=== PATIENT | female | born 1945 | race Caucasian/White ===

== ENCOUNTER 2016-07-02 12:06 | Emergency (ER) | payer OTHER, MEDICARE ==
[2016-07-02 12:28] VITALS: BP 118/74; PULSE 64; RESP 14
--- NOTE | 2016-07-02 12:57 | DX ---
Right Hand, 3 Views, at 12:41 p.m. Clinical History: 71-year-old female with pain and swelling over the 5th metacarpal after a fall this morning. Comparison Study: None. Findings: The bones are demineralized. There is an acute nondisplaced fracture involving the 5th meta carpal head, and an acute mildly displaced and partially comminuted fracture involving the distal uln ar aspect of the 4th metacarpal head-neck junction. 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 On t he lateral view, there some dorsal soft tissue swelling. Impression: Acute fractures of the distal portions of the 4th and 5th metacarpals.
--- NOTE | 2016-07-02 13:01 | UCPHY ---
H & P Patient Type: Established Smoking Status: Never smoked Time Seen by Provider: 07/02/16 12:33 HPI/ROS: CHIEF COMPLAINT: right hand pain HISTORY OF PRESENT ILLNESS: 71-year-old [id number] female complaining of acute right hand pain in the urgent care after she sustained a purely mechanical fall impacting the hand against the ground shortly prior to arrival. Reproducible pain with range of motion and palpation. No other injury. No head injury. PHYSICAL EXAM (Prior to examination, patient consented to physical exam, hands were washed and my usual and customary physical exam procedures followed) 1) GENERAL: Well-developed, well-nourished, alert and oriented. Appears to be in no acute distress. 2) HEAD: Normocephalic 3) HEENT: Pupils equal, round, reactive to light bilaterally. 4) LUNGS: Breathing comfortably. 5) MUSCULOSKELETAL: Tender to palpation 4th and 5th metacarpal with associated soft tissue swelling, ecchymosis. Soft compartments. Normal coloration. Normal cascading of digit 6) SKIN: intact 7) VASCULAR: pulses and cap refill present are brisk 8) NEUROLOGIC: Radial, ulnar, median nerve function intact with no deficits appreciated on exam DIFFERENTIAL DIAGNOSIS: in no particular order including but not limited to fracture, sprain, compartment syndrome Right Hand, 3 Views, at 12:41 p.m. Clinical History: 71-year-old female with pain and swelling over the 5th metacarpal after a fall this morning. Comparison Study: None. Findings: The bones are demineralized. There is an acute nondisplaced fracture involving the 5th metacarpal head, and an acute mildly displaced and partially comminuted fracture involving the distal ulnar aspect of the 4th metacarpal head-neck junction. 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 On the lateral view, there some dorsal soft tissue swelling. Impression: Acute fractures of the distal portions of the 4th and 5th metacarpals. Dictated By: Chapo Baca MD Images reviewed by myself Procedure: Splint An ulnar gutter Ortho Glass splint was applied by ER orthodontic lab technician. After application of the splint I returned and re-examined the patient. The splint was adequately immobilizing the joint and distal to the splint the patient's circulation and sensation were intact. Patient shows no signs of compartment syndrome. Was given orthopedic precautions. (Jluis Carson) Constitutional: Initial Vital Signs Heart Rate 64 07/02/16 12:26 Respiratory Rate 14 07/02/16 12:26 Blood Pressure 118/74 07/02/16 12:26 Allergies/Adverse Reactions: No Known Allergies Allergy (Verified 03/26/15 14:38) Home Medications: Medication Instructions Recorded Citalopram 03/26/15 Felodipine 03/26/15 MDM/Departure - MDM ED Course/Re-evaluation: Soft compartments with no evidence of compartment syndrome. No evidence of open fracture. Offered analgesia rx which she declines. Usual and customary orthopedic precautions and instructions provided and follow-up with Hand surgery. She feels comfortable being discharged (Jluis Carson) The patient was evaluated and managed by the physician regulatory assistant. I have reviewed this chart and I agree with the findings and plan of care as documented , as indicated by my signature. I am the secondary supervising physician. ( Rika Ledesma) - Depart Disposition: Home, Routine, Self-Care Clinical Impression: Fracture of fourth metacarpal bone of right hand Qualifiers: Encounter type: initial encounter Fracture type: closed Metacarpal location: neck Fracture alignment: nondisplaced Qualifier Code: (S62.364A) Nondisplaced fracture of neck of fourth metacarpal bone, right hand, initial encounter for closed fracture Closed fracture of 5th metacarpal Qualifiers: Encounter type: initial encounter Metacarpal location: neck Fracture alignment : nondisplaced Laterality: right Qualifier Code: (S62.366A) Nondisplaced fracture of neck of fifth metacarpal bone, right hand, initial encounter for closed fracture Condition: Good Instructions: Hand Fracture (ED) Additional Instructions: Return to the ER immediately if you experience discoloration, have worsening pain, numbness, tingling, or any other symptoms that concern you. If you received x-rays in the emergency department today, be advised, that ligamentous , tendon, muscular, and other non-bony injury cannot be fully ruled out. Try to keep your affected extremity elevated above the level of your chest, and keep cold packs on the affected area, for the next 48 hours. Referrals: Ayaan Rainey MD [Medical Doctor] - 2-3 days, if not improved (Dr. Ayaan Rainey is an orthopedic/hand surgeon) - PQRS PQRS Measurement: 134: Depression screening and followup, PRIME MD-PHQ2 (12 years and older) Over the last 2 weeks, how often have you been bothered by any of the following problems? 1. Feeling down, depressed, or hopeless? 2. Little interest or pleasure in doing things? Patient answered no to both 1 and 2 130: Documentation of medications. Reviewed all patient medications, doses, route and frequency. 226: Do you smoke? No. 47: 65 and older: Advanced care planning. Patient has advanced directive. 51: 18 years old and older with diagnosis of COPD, spirometry performance. Spirometry not performed; equipment not available. 52: 18 years old and older with COPD and symptoms of COPD or FEV1<60% predicted prescribed a B Agonist. not applicable . (Jluis Carson)
== END 2016-07-02 13:27 | disposition home or self-care (01) ==
LOC: CED 12:06
DX: S62.364A Nondisplaced fracture of neck of fourth metacarpal bone, right hand, initial encounter for closed fracture (principal); S62.366A Nondisplaced fracture of neck of fifth metacarpal bone, right hand, initial encounter for closed fracture; W19.XXXA Unspecified fall, initial encounter
CPT/HCPCS: 73130; G0463; 29105-PO; 99214-PO

== ENCOUNTER → 2016-07-17 | Outpatient (CLI) | payer OTHER, MEDICARE ==
--- NOTE | 2016-07-17 09:16 | MA ---
Screening Digital Mammogram With iCAD Analysis Clinical Indications: Routine screening. Technique: Standard cephalocaudal and mediolateral oblique projections are obtained. This examination is processed by the iCAD computer aided detection system. Comparison: June 2015, May 2014, March 2013, October 2011, September 2010, August 2009 and 2008. Breast density: Type B; Scattered fibroglandular densities. Findings: CAD was reviewed. No masses, suspicious calcifications or other signs of malignancy are see n. There has been no significant change in the appearance of either breast. Impression: Negative mammogram. BI-RADS 1. Recommendation: Routine mammographic screening in one year as long as physical examination is [facility]ativ [facility]. Negative mammography should not preclude additional workup of a clinically suspicious finding. The patient's information is entered into a reminder system with a target due date for her next mammo gram.
== END ==
LOC: CIMAGING 07:51
PROVIDERS: ATTEND Family Medicine
DX: Z12.31 Encounter for screening mammogram for malignant neoplasm of breast (principal)
CPT/HCPCS: G0202

== ENCOUNTER → 2016-08-07 | Outpatient (CLI) | payer OTHER, MEDICARE ==
--- NOTE | 2016-08-07 20:40 | DX ---
DEXA Bone Mineral Densitometry Clinical Indications: Postmenopausal, history of right wrist fracture, Fosamax x2 years, follow-up o steoporosis Comparison: June 05, 2014 Technique: Bone Mineral Densitometry (BMD) by Dual Energy X-Ray Absorptiometry (DEXA) was performed utilizing the [employer] scanner. The lumbar spine was evaluated in the AP projection. The bilat eral hips and forearm were evaluated in the AP projection. Vertebral fracture assessment was also pe rformed. AP Lumbar Spine: The L1, L2, L3 and L4 vertebral bodies were evaluated. BMD: 0.884 gm/cm2 T-score: -2.5 SD Z-score: -0.8 SD Significantly increased by 3.6%. AP Left Hip: Neck BMD: 0.652 gm/cm2 T-score: -2.8 SD Z-score: -1.0 SD Total BMD is significantly increased by 6.8% AP Right Hip: Total BMD: 0.638 gm/cm2 T-score: -2.9 SD Z-score: -1.4 SD No significant change. AP Left Forearm, 07/04: BMD: 0.651 gm/cm2 T-score: -2.6 SD Z-score: 0.7 SD Significant change. Vertebral Fracture Assessment: Several mild thoracic compressions are stable. No new compressions barr ve developed.. No prevertebral aortic calcification, significant marginal bone spurring, facet arthro sis, or intrinsic vertebral body sclerosis that would effect the accuracy of the lumbar spine BMD me asurement. Conclusion: Considering the lowest measured site, the patient remains osteoporotic and at increased risk for fracture. As Fosamax therapy should be continued, as clinically directed. The ten year FRAX risk for any major osteoporotic fracture is 27.1% and for a hip fracture is 8.4%. Any bone loss in this patient is probably related to aging or estrogen deficiency. To prevent osteoporosis and to promote the patient's bone density, the following recommendations shou ld be considered: 1. Pursue a regular regimen of weightbearing and muscle strengthening exercises in order to reduce t he risk of falls and fractures (as tolerated by the patient's general medical condition). 2. Ensure that daily dietary calcium uptake is maximized. 3. Consider checking the serum vitamin D level. Ensure that intake of vitamin D is 800 IU per day (f or ages 71 and older). 4. Consider follow-up DEXA scan in one year to reassess the efficacy of pharmacologic intervention.
== END ==
LOC: BRMIMAGING 08:42
PROVIDERS: ATTEND Family Medicine
DX: M81.0 Age-related osteoporosis without current pathological fracture (principal)

== ENCOUNTER → 2017-09-26 | Outpatient (CLI) | payer OTHER, MEDICARE | LOC: CIMAGING 10:34 | PROVIDERS: ATTEND Family Medicine | DX: Z12.31 Encounter for screening mammogram for malignant neoplasm of breast (principal) ==

== ENCOUNTER → 2018-08-30 | Outpatient (CLI) | payer OTHER, MEDICARE | LOC: BRMIMAGING 09:24 ==

== ENCOUNTER → 2018-10-02 | Outpatient (CLI) | payer OTHER, MEDICARE | LOC: CIMAGING 09:16 | PROVIDERS: ATTEND Family Medicine | DX: Z12.31 Encounter for screening mammogram for malignant neoplasm of breast (principal) ==